=== PATIENT | male | born 1990 | race Caucasian/White ===

== ENCOUNTER 2017-09-16 23:03 | Emergency (ER) | payer MEDICAID ==
[~2017-09-16] VITALS: Ht 180.3 cm; Wt 66.2 kg
[2017-09-17 00:04] VITALS: BP 140/87
== END 2017-09-17 03:00 | disposition home or self-care (01) ==
LOC: ER 23:06
DX: T16.2XXA Foreign body in left ear, initial encounter (principal); Z59.0 Homelessness; X58.XXXA Exposure to other specified factors, initial encounter; Y93.89 Activity, other specified; Y92.89 Other specified places as the place of occurrence of the external cause; Y99.8 Other external cause status
CPT/HCPCS: 69200